=== PATIENT | female | born 1975 | race Caucasian/White ===

== ENCOUNTER 2016-07-27 08:29 | Inpatient (IN) | payer BC ==
[2016-07-27] MEDS ORDERED: Terbutaline INJ* 1 MG/ML VIAL ONE (10:26)
[2016-07-27] MEDS ORDERED: fentaNYL* 50 MCG/ML 2 ML VIAL (100 MCG VIAL) ONE ×2 (10:43→11:02)
[2016-07-27] MEDS ORDERED: OXYTOCIN* 10 UNITS/ML 1 ML VIAL ONE ×2 (10:49→11:19)
[2016-07-27] MEDS ORDERED: Lidocaine 2% PF * 5 ML VIAL ONE (10:49)
[2016-07-27] MEDS ORDERED: Propofol* 10 MG/ML 20 ML BTL IV PUSH ONE (10:49)
[2016-07-27] MEDS ORDERED: Succinylcholine* 20 MG/ML 10 ML VIAL ONE (10:49)
[2016-07-27] MEDS ORDERED: Ondansetron INJ* 2 MG/ML VIAL ONE (10:49)
[2016-07-27] MEDS ORDERED: Gentamicin ADULT (*) 120 MG in NS 0.9% 100 ML* 100 ML IVPB ONE (11:00)
[2016-07-27] MEDS ORDERED: Terbutaline INJ* 1 MG/ML VIAL SUBCUT ONE (11:28)
[2016-07-27] MEDS ORDERED: Vancomycin(*) 1,000 MG in NS 0.9% 250 ML* 250 ML IVPB ONE (11:30)
[2016-07-27] MEDS ORDERED: Glycerin ADULT SUPP PR PRN (12:00)
[2016-07-27] MEDS ORDERED: Witch Hazel PAD* JAR TOPICAL PRN (12:00)
[2016-07-27] MEDS ORDERED: Dibucaine 1% 28.35 GM TUBE PR PRN (12:00)
[2016-07-27] MEDS ORDERED: Oxytocin in LR* 20 UNITS/1,000 ML BAG IVPB SCH (12:00)
[2016-07-27] MEDS ORDERED: Ondansetron INJ* 2 MG/ML VIAL IV PRN (12:05)
[2016-07-27] MEDS ORDERED: DiMENhydriNATE IV* 50 MG/ML VIAL IV PUSH PRN (12:05)
[2016-07-27] MEDS ORDERED: PROCHLORPERAZINE INJ 5 MG/ML 2 ML VIAL IV PRN (12:05)
[2016-07-27] MEDS ORDERED: Ketorolac INJ* 30 MG/ML 1 ML VIAL IV PRN (12:05)
[2016-07-27] MEDS ORDERED: Midazolam* 1 MG/ML 2 ML VIAL (2 MG) IV ONE (12:06)
[2016-07-27] MEDS: fentaNYL* 50 MCG/ML 2 ML VIAL (100 MCG VIAL) IV PRN ×4 (12:14→12:54)
--- NOTE | 2016-07-27 12:29 | RAD ---
INDICATION: Stat . Verify all instruments COMPARISON: None TECHNIQUE: A single, supine, portable view of the abdomen is submitted. FINDINGS: Bones: There are no acute bony findings. Soft tissues: There is an enlarged uterine shadow compatible with recent . Bowel gas pattern: Normal Calcifications: There are no abnormal calcifications. Other: There are no metallic instruments. There is artifact from a sterile drape overlying the lower abdomen IMPRESSION: NO METALLIC INSTRUMENTS ARE IDENTIFIED ON THE SINGLE VIEW
[2016-07-27] MEDS: HYDROmorphone INJ* 1 MG/ML CARPUJECT SYRINGE IV PRN ×2 (13:04→13:34)
[2016-07-27] MEDS ORDERED: NS 0.9% 1000 ML* 1,000 ML IVPB SCH (13:11)
[2016-07-27] MEDS ORDERED: Naloxone* 0.4 MG/ML 1 ML VIAL IV PUSH PRN (13:11)
[2016-07-27] MEDS: Simethicone TAB* 80 MG TAB.CHEW PO SCH ×2 (13:25→23:09)
[2016-07-27] MEDS ORDERED: HYDROmorphone PCA* 20 MG/20 ML PCA.SYRING PCA SCH (14:00)
[2016-07-27] MEDS: Gentamicin ADULT (*) 120 MG in NS 0.9% 100 ML* 100 ML IVPB SCH (20:00)
[2016-07-27] MEDS ORDERED: Vancomycin(*) 1,000 MG in NS 0.9% 250 ML* 250 ML IVPB SCH (23:00)
[2016-07-27] MEDS: Docusate CAP* 100 MG PO SCH (23:09)
--- NOTE | 2016-07-28 02:59 | OP ---
DATE OF OPERATION: 07/27/16 - ROOM #118 DATE OF : 79 SURGEON: Francoise Cooper MD. ASSISTANTS: 1. Gina Gunter CNM 2. Andres Núñez MD VERTICAL PUNCH OPERATOR: Dr. Iyer. ANESTHESIOLOGIST: Jose A Steve MD ANESTHESIA: General endotracheal. PRE-OP DIAGNOSIS: Cord prolapse, category 3 heart tracing. POST-OP DIAGNOSIS: Cord prolapse, category 3 heart tracing, delivered. OPERATIVE PROCEDURE: Primary low transverse section. ESTIMATED BLOOD LOSS: 700 cc. URINE OUTPUT: 200 cc of clear yellow urine. FLUIDS: 2000 cc of crystalloid. FINDINGS: Revealed an extensive cord prolapse out the vaginal introitus, thick meconium. Female infant. Apgars 0 at 1 minute, 3 at 5 minutes, and 7 at 10 minutes. Placenta was manually extracted , three-vessel cord and intact. Normal appearing tubes and ovaries bilaterally. Extension to the left of the uterine wall defect involving left uterine vein. COMPLICATIONS: None apparent. DISPOSITION: Stable to recovery room. DESCRIPTION OF PROCEDURE: The patient was placed in dorsal lithotomy position after undergoing general endotracheal anesthesia. An incision was made two fingerbreadths above the pubic symphysis, this was carried down through to the fascia. Fascia was scored in the midline with a scalpel and then the peritoneum was then entered bluntly. The uterus was identified. A bladder blade was inserted and a scalpel was used to make an incision in the lower uterine segment. This was carried down through to head. This incision was then extended bluntly superiorly. The infant was delivered, anterior posterior shoulder delivered. Cord was clamped and the infant was handed off immediately to packing machine feeder. Appropriate cord blood was obtained and appropriate cord blood for gases were obtained. Placenta was then manually extracted, noted to be intact and had a normal appearance. The uterus was exteriorized. The uterine cavity was explored and noted to be free of any membranes or placental tissue. The uterine wall hysterotomy site was then reapproximated in 2 layers, first layer running locked, second layer running imbricated at 0 Vicryl. There was some bleeding noted on the left lateral edge of the incision, 0 Vicryl, [id number] was applied and uterine vein was noted to be involved in this bleeding, at left angle. A second attempt at closure of the defect was made involving the uterine vein, but bleeding continued at that point. A second staff physical therapy assistant of RN [employer] was consulted for assistance. The uterine vein was clamped with a right angle and a 2-0 Polysorb was then placed for closure of this defect in the uterine vein and for hemostasis. The right angle was removed after suture ligation was completed. The uterus was returned intra-abdominally. Normal tubes and ovaries were noted. At this point, the colic gutters were lavaged. Hemostasis was assured of the hysterotomy site and the peritoneum was then reapproximated with 3-0 Polysorb in a running fashion. The subfascial area was visualized. Hemostasis assured with Bovie coagulation and the fascia itself was then reapproximated with 0 Vicryl x2 in a running fashion. The subcu was lavaged. Hemostasis was assured with Bovie coagulation and the subcutaneous tissue was then reapproximated using 0 Polysorb for closure of the Camper's fascia. The skin was then reapproximated using a 4-0 Monocryl in a subcuticular fashion. Steri' s were applied after Monsel and a flat plate plain film was then obtained given the emergency nature of this procedure. A full count was not obtained prior to beginning the case. The counts were in correlation with the number of instruments that should be there and the plain film revealed no retained instruments nor any retained laparotomy sponges.Pt was then taken to recovery room in stable condition. [id number]/[facility] #: [id number] JANNA
[2016-07-28] MEDS: Gentamicin ADULT (*) 120 MG in NS 0.9% 100 ML* 100 ML IVPB SCH (04:20)
[2016-07-28 06:32] LABS: Hematocrit 29 % (35-47); Hemoglobin 9.7 g/dl (12.0-16.0); Mean Corpuscular HGB Conc 33 g/dl (31-36); Mean Corpuscular Hemoglobin 31 pg (27-31); Mean Corpuscular Volume 94 fL (80-97); Mean Platelet Volume 9 um3 (7.4-10.4); Red Cell Distribution Width 14 % (10.5-15); White Blood Count 18.2 10^3/ul (3.5-10.8)
[2016-07-28] MEDS: oxyCODONE/Acetamin 5/325 MG* TAB PO PRN ×3 (07:33→20:57)
[2016-07-28] MEDS: Ibuprofen TAB* 600 MG PO PRN ×3 (07:36→23:26)
[2016-07-28] MEDS: Docusate CAP* 100 MG PO SCH ×4 (09:20→20:55)
[2016-07-28] MEDS: Simethicone TAB* 80 MG TAB.CHEW PO SCH ×5 (09:21→20:56)
[2016-07-28] MEDS: Ferrous Gluconate TAB* 324 MG TAB PO SCH ×2 (09:21→20:55)
[2016-07-28] MEDS: PROCHLORPERAZINE INJ 5 MG/ML 2 ML VIAL IV SCH (09:26)
[2016-07-29] MEDS: oxyCODONE/Acetamin 5/325 MG* TAB PO PRN ×2 (02:03→09:58)
[2016-07-29] MEDS: Ibuprofen TAB* 600 MG PO PRN ×3 (07:39→20:14)
[2016-07-29] MEDS: Simethicone TAB* 80 MG TAB.CHEW PO SCH ×4 (09:52→21:20)
[2016-07-29] MEDS: Ferrous Gluconate TAB* 324 MG TAB PO SCH ×2 (09:52→20:14)
[2016-07-29] MEDS: Docusate CAP* 100 MG PO SCH ×3 (09:52→20:14)
[2016-07-29] MEDS: Acetaminophen TAB* 325 MG PO PRN ×3 (10:00→21:23)
[2016-07-29] MEDS: ceFUROXime TAB(*) 250 MG PO SCH ×2 (11:09→21:19)
[2016-07-30] MEDS: Acetaminophen TAB* 325 MG PO PRN ×3 (02:17→13:51)
[2016-07-30] MEDS: Ibuprofen TAB* 600 MG PO PRN ×2 (02:17→08:45)
[2016-07-30 08:04] VITALS: BP 106/64
[2016-07-30] MEDS: Simethicone TAB* 80 MG TAB.CHEW PO SCH ×2 (08:44→12:11)
[2016-07-30] MEDS: Ferrous Gluconate TAB* 324 MG TAB PO SCH (08:45)
[2016-07-30] MEDS: Docusate CAP* 100 MG PO SCH ×2 (08:45→12:12)
[2016-07-30] MEDS: ceFUROXime TAB(*) 250 MG PO SCH (08:45)
--- NOTE | 2016-07-30 13:12 | PTEDU ---
Patient Name: SHUKRI WALTER SHUKRI WALTER selected video: BBOB: Bonding Through Massage to view on 07/30/2016 at 1:11:28 PM from [id number]
== END 2016-07-30 15:54 | disposition home or self-care (01) | DRG 540 ==
LOC: MCHOBOUT 08:29 → MCHOB 08:35 → UNDOADMIN 08:35 → MCHOB 08:57
PROVIDERS: ADMIT Midwife; ATTEND Obstetrics & Gynecology
PROC: 4A1HXCZ Monitoring of Products of Conception, Cardiac Rate, External Approach (ICD-10-PCS; 2016-07-27)
PROC: 0W3R0ZZ Control Bleeding in Genitourinary Tract, Open Approach (ICD-10-PCS; 2016-07-27)
PROC: 10D00Z1 Extraction of Products of Conception, Low, Open Approach (ICD-10-PCS; principal; 2016-07-27 10:34)
DX: O69.0XX0 Labor and delivery complicated by prolapse of cord, not applicable or unspecified (principal); O90.81 Anemia of the puerperium; O09.513 Supervision of elderly primigravida, third trimester; Z3A.39 39 weeks gestation of pregnancy; Z37.0 Single live birth; O76 Abnormality in fetal heart rate and rhythm complicating labor and delivery; O77.0 Labor and delivery complicated by meconium in amniotic fluid; Z88.1 Allergy status to other antibiotic agents
CPT/HCPCS: 36415; 74000; 85025; 88307; A9270-GY; J0330; J1170; J1580; J1885; J2250; J2405; J2590; J2704; J3010; J3105; J3370